=== PATIENT | male | born 1970 | race Caucasian/White ===

== ENCOUNTER → 2023-09-19 | Outpatient (CLI) | payer BC ==
--- NOTE | 2023-09-19 10:20 | CA ---
Stress Echo Report Maik Mosqueda Age: 52 Gender: M : 1970 Exam Date: 09/19/2023 09:08 Exam Location: [place] Stress Ht (in): 74 Wt (lb): 260 Ordering Physician: Jocelyn Gomez MD Referring Physician: Jocelyn Gomez MD [employer]: Suyapa Spears [facility] Technologist Procedure CPT: Indication: I10 Essential Hypertension ICD-9 Codes: Rhythm: Patient History: Cardiac Medications: Medications in past 24 hours: Contrast: N/A Stress Results Protocol: Raymond Total dose(mL): Exercise Duration (min:sec): 10:[address] Depression (mm): Angina Score: Mendez Score: METS: 11.5 Resting HR: 61 Resting BP: 137 / 88 Peak HR: 153 Peak BP: 190 / 105 Max Predicted HR: 170 90 % Max Predicted HR Target HR: 145 Double Product: [id number] Stress Summary: BP Response: Reason for Termination: Reached target heart rate or work-load Cardiac Symptoms: Test terminated after reaching target heart rate (85% max predicted) ECG Analysis Resting ECG: Stress ECG: Arrhythmia: Echo Analysis Resting Echo: Peak Echo Analysis: MEASUREMENTS (Male/Female) Normal Values 2D ECHO LVOT Diameter 2.0 cm DOPPLER AV Peak Velocity 263.5 cm/s AV Peak Gradient 27.8 mmHg AV Mean Velocity 187.4 cm/s AV Mean Gradient 15.5 mmHg AV Velocity Time Integral 64.4 cm LVOT Peak Velocity 110.0 cm/s LVOT Peak Gradient 4.8 mmHg LVOT Velocity Time Integral 30.0 cm LVOT Stroke Volume 90.1 cm??? LVOT Stroke Volume Index 37.1 ml/m??? LVOT Cardiac Index 2184.4 cm???/min???m??? AV Area Cont Eq vti 1.4 cm??? AV Area Cont Eq pk 1.3 cm??? CONCLUSIONS Excellent exercise tolerance Mild EKG changes in response to exercise Mildly abnormal echocardiogram with exercise with apical hypokinesia Dr. Stevenson Marrufo MD (Electronically Signed) Final Date: 19 September 2023 10:19
== END | disposition home or self-care (01) ==
LOC: RADNMMAIN 08:38
PROVIDERS: ATTEND Family Medicine
DX: I10 Essential (primary) hypertension (principal); I20.9 Angina pectoris, unspecified; R94.31 Abnormal electrocardiogram [ECG] [EKG]; Z82.49 Family history of ischemic heart disease and other diseases of the circulatory system
CPT/HCPCS: 93351; Q9957